=== PATIENT | male | born 1960 | race Caucasian/White ===

== ENCOUNTER 2017-05-27 11:40 | Inpatient (IN) | payer OTHER ==
[~2017-05-27] VITALS: Ht 170.2 cm; Wt 70.8 kg
[2017-06-10] MEDS ORDERED: PROBIOTIC & AC1 EACH PO (09:10)
== END 2017-06-10 10:23 | disposition home or self-care (01) | DRG 391 ==
LOC: ER 11:40 → ICU 18:23 → SURG 18:23 → ICU-2 18:23 → ICU 05-28 04:43 → SURG 06-01 13:37
PROC: BW21Y0Z Computerized Tomography (CT Scan) of Abdomen and Pelvis using Other Contrast, Unenhanced and Enhanced (ICD-10-PCS; 2017-05-27)
PROC: 3E0336Z Introduction of Nutritional Substance into Peripheral Vein, Percutaneous Approach (ICD-10-PCS; 2017-05-28)
PROC: 0W9G30Z Drainage of Peritoneal Cavity with Drainage Device, Percutaneous Approach (ICD-10-PCS; principal; 2017-06-03)
PROC: BW21Y0Z Computerized Tomography (CT Scan) of Abdomen and Pelvis using Other Contrast, Unenhanced and Enhanced (ICD-10-PCS; 2017-06-03)
PROC: BW21Y0Z Computerized Tomography (CT Scan) of Abdomen and Pelvis using Other Contrast, Unenhanced and Enhanced (ICD-10-PCS; 2017-06-08)
DX: K57.20 Diverticulitis of large intestine with perforation and abscess without bleeding (principal); A41.9 Sepsis, unspecified organism; B96.20 Unspecified Escherichia coli [E. coli] as the cause of diseases classified elsewhere; B95.2 Enterococcus as the cause of diseases classified elsewhere

== ENCOUNTER 2019-03-24 08:25 | Outpatient (CLI) | payer OTHER ==
[~2019-03-24 08:25] MED LIST: PROBIOTIC & AC1 EACH PO
== END 2019-03-24 08:27 | disposition home or self-care (01) ==
LOC: SONOGRAMA 08:25
DX: G89.11 Acute pain due to trauma (principal)

== ENCOUNTER 2025-01-05 08:57 | Outpatient (CLI) | payer OTHER | END 2025-01-05 09:05 | disposition home or self-care (01) | LOC: RAD 08:57 | PROVIDERS: ATTEND Internal Medicine Cardiovascular Disease | DX: R07.9 Chest pain, unspecified (principal) ==